=== PATIENT | female | born 1970 | race Caucasian/White ===

== ENCOUNTER → 2023-11-10 11:58 | Outpatient (REF) | payer OTHER, SELFPAY | LOC: RAD 11:58 | PROVIDERS: ATTENDING PHYSICIAN Nurse Practitioner | DX: M79.671 Pain in right foot (principal) | CPT/HCPCS: 73630 ==

== ENCOUNTER → 2024-02-27 08:17 | Outpatient (REF) | payer OTHER, SELFPAY | LOC: WDC 08:17 | PROVIDERS: ATTENDING PHYSICIAN Family Medicine Geriatric Medicine; FAMILY PHYSICIAN Nurse Practitioner | DX: R92.8 Other abnormal and inconclusive findings on diagnostic imaging of breast (principal); Z12.31 Encounter for screening mammogram for malignant neoplasm of breast | CPT/HCPCS: 76642; 77063; 77067 ==

== ENCOUNTER 2024-02-27 08:53 | Emergency (ER) | payer OTHER, SELFPAY ==
[2024-02-27 08:54] VITALS: BP 130/92
--- NOTE | 2024-02-27 09:22 | ED.GENMED ---
History of Present Illness
General
Chief Complaint: Musculo-Skeletal Complaint
Source: patient
Time Seen by Provider: 02/27/24 08:57
History of Present Illness
History of Present Illness:
53-year-old female with past medical history of breast cancer, remission since 2020, presenting to the emergency department for evaluation of left lower back pain that started on Friday night described to be a constant aching sensation,
intermittently having sharp pain radiating down her left leg, pain worsens with any type of movement noting that when she attempts to get into a sitting or standing position she has significant pain but once she is sitting or laying feels more
comfortable. She states she cannot think of anything that may have exacerbated or caused her symptoms. She does note she did a little bit of gardening on either Friday or Friday but does not remember having any pain during this time. Denies any
fevers, bowel or urinary incontinence, saddle anesthesia, focal weakness or numbness, chronic corticosteroid use, traumatic injuries or any other concerns. Patient does note that she was at this facility already getting imaging that she gets
annually for her breast cancer and she has an appointment scheduled with her primary care provider for 11:15 AM this morning but thought the primary care would send her for imaging anyway so decided to come to the ER instead.
Past History
Past History
ED Past Medical History: Cancer and Other (Fibromyalgia, chronic sinus issues, interstitial cystitis)
ED Past Surgical History: Tonsilectomy and Other (Sinus surgery/abdominal mesh)
Social History
Tobacco: Former smoker
Alcohol: None
Drug: None
Personal:
Living: with family
Employment: Employed
Family History
Family History: Other (Noncontributory)
Review of Systems
Review of Systems
All Other Systems: ROS reviewed and negative except as documented in HPI and ROS
Phy Exam
Physical Exam
Physical Exam:
GENERAL: Alert , in no apparent distress at rest but appears uncomfortable with movement
EYE: clear conjunctiva b/l
NECK: Supple
ENT: o/p clr, mmm.
BACK: Limited range of motion especially with forward bend, left paralumbar and sacroiliac tenderness, no midline bony tenderness, no rashes
NEUROLOGICAL: Alert and oriented, no focal neuro deficits. Patellar deep tendon reflexes intact and equal bilaterally, sensation grossly intact and equal to light touch bilateral lower extremities, negative straight leg raise
SKIN: Warm and dry, skin intact.
MUSCULOSKELETAL: No edema, well perfused. EHL intact bilaterally
PSYCH: Normal and appropriate interaction.
Scores
Heart Failure Risk
Heart Failure Risk Score: Not Applicable
Heart Score for Chest Pain Patients
STEMI patient?: Not applicable
Withdrawal Assessment of Alcohol
Withdrawal Assessment Completed?: Not applicable
Course
Orders/Labs/Results
Orders:
Orders
02/27/24 09:18
CR Lumbar Spine Comp Min 4 Vw* Urgent
Comment:
Reason For Exam: low back pain, radicular symptoms LLE
Vital Signs
Initial and Last Documented VS:
Initial Vital Signs
Temp Pulse Resp BP Pulse Ox
97.9 F 73 16 130/92 98
02/27/24 08:54 02/27/24 08:54 02/27/24 08:54 02/27/24 08:54 02/27/24 08:54
Last Documented Vital Signs
Temp Pulse Resp BP Pulse Ox
97.9 F 73 16 130/92 98
02/27/24 08:54 02/27/24 08:54 02/27/24 08:54 02/27/24 08:54 02/27/24 08:54
MDM/Problems Addressed
Differential Diagnosis Includes:
Disc herniation, nerve impingement, spinal stenosis, lumbar strain, no concern for infectious or acute neurologic impairment
MDM/Problems Addressed:
53-year-old female presenting to the emergency department with 2 days of left-sided lower back pain, pain will intermittently radiate down left leg, much worse with movement and positioning. Clearly reproducible pain with palpation on exam to the
left paralumbar and sacroiliac region. Patient takes Mobic for chronic right foot pain that she is currently being worked up for with podiatry. No red flag symptoms in history outside of known breast cancer however I do not have suspicion for
metastases as patient currently in remission. Will check x-ray imaging. Discussed with patient she may need more advanced imaging especially if symptoms persist or continue to worsen. She already has follow-up scheduled with primary care provider
today. Anticipate discharge home and will prescribe Medrol Dosepak and topical agents. Patient already has muscle relaxants and anti-inflammatories at home.
*Radiology
Radiology exam reviewed: preliminary read by ED provider (mild degenerative changes)
*Pulse Oximetry
Patient hypoxic: no
*Critical Care Note
Total Time (30-74mins, 75-104mins- exclusive of procedures): Not Applicable
Data Reviewed
Review of Other/Old Records Reveals: Labs and Records
Source: patient
Patient Management
Escalation/DeEscalation of care consider admission/obs:
XR with mild degenerative changes but no other abnormalities. Stable for d/c home and outpatient f/u with PCP. Patient will also notify her ortho
ED Attending Note
-
Portions of this chart may have been created with voice recognition software.� Occasional wrong word or��sound alike� substitutions may have occurred due to the inherent limitations of voice recognition software.
Discharge Plan
Departure
Patient Disposition: Home (Routine Discharge)
Date of Disposition: 02/27/24
Time of Disposition: 10:15
Patient with high blood pressure during this ER visit?: No
Discharge Problem:
Low back pain
Instructions: Low Back Pain (DC)
Prescriptions:
New
methylprednisolone [Medrol (Tone)] 4 mg tablets,dose pack
4 mg PO DIRECTED Qty: 21 0RF
No Action
Maxalt
10 mg PO PRN PRN (Reason: migraines)
fluticasone propion-salmeterol [Wixela Inhub] 1 EACH blister with device
1 ea IH BID
benzonatate 100 MG capsule
200 mg PO TIDPRN PRN (Reason: cough)
buspirone [BuSpar] 15 mg Tablet
15 mg PO BID
armodafinil [Nuvigil] 250 mg Tablet
250 mg PO DAILY
iron
1 dose PO DAILY
omeprazole 40 mg Capsule,Delayed Release(Dr/Ec)
40 mg PO HS
albuterol sulfate 90 mcg/actuation Hfa Aerosol Inhaler
1 inh INHALATION PRN PRN (Reason: shortness of breath)
Vitamin D3
1 tab PO DAILY
cyanocobalamin (vitamin B-12)
1 tab PO DAILY
fluticasone propionate [Flonase] 50 mcg/actuation [place],Suspension
1 spray INTRANASAL PRN PRN (Reason: nasal congestion)
Referrals:
Lesvia High MD [Family Provider] -
Interventions
Interventions:
*Risk Screen - Suicide Last Done: 02/27/24 08:54
*General Assessment Last Done: 02/27/24 08:54
*Neglect/Abuse Screening Last Done: 02/27/24 08:54
ED- Fall Risk Assessment Last Done: 02/27/24 10:21
*ED COVID-19 Vaccine History Last Done: 02/27/24 10:21
*Nursing Disposition Last Done: 02/27/24 10:21
ED-Musculoskeletal Assessment Last Done: 02/27/24 09:48
Discharge Date and Time
Discharge Date/Time: 02/27/24 10:22
Print Language: AMHARIC
== END 2024-02-27 10:22 | disposition home or self-care (01) ==
LOC: EMR 08:53
PROVIDERS: EMERGENCY PHYSICIAN Emergency Medicine; FAMILY PHYSICIAN Internal Medicine
DX: M54.50 Low back pain, unspecified (principal); M79.605 Pain in left leg; M79.671 Pain in right foot; G89.29 Other chronic pain; M79.7 Fibromyalgia; Z87.891 Personal history of nicotine dependence; Z85.3 Personal history of malignant neoplasm of breast; Z88.1 Allergy status to other antibiotic agents
CPT/HCPCS: 99283; 72110

== ENCOUNTER → 2024-03-22 12:44 | Outpatient (REF) | payer OTHER, SELFPAY | LOC: RAD 12:44 | PROVIDERS: ATTENDING PHYSICIAN Physician Assistant; FAMILY PHYSICIAN Nurse Practitioner | DX: M54.50 Low back pain, unspecified (principal); M54.9 Dorsalgia, unspecified | CPT/HCPCS: 72202 ==

== ENCOUNTER 2024-04-05 06:21 | Day surgery (SDC) | payer BC, SELFPAY ==
[2024-03-29 10:08] VITALS: BMI 30.6
[2024-03-29 10:46] LABS: % Basophils 0.8 % (0-2); % Eosinophils 3.3 % (0-6); % Immature Granulocytes 0.2 % (0-0.5); % Monocytes 8.3 % (1.7-9.3); % Neutrophils 64.4 % (42.2-75.2); Absolute Eosinophils 0.2 10^3/uL (0-0.7); Absolute Lymphocytes 1.2 10^3/uL (1.2-3.4); Absolute Monocytes 0.4 10^3/uL (0.1-0.6); Absolute Neutrophils 3.3 10^3/uL (1.4-6.5); Hemoglobin 12.5 g/dL (12.0-16.0); Mean Corp Hgb Conc. 32.9 g/dL (33.0-37.0); Mean Corpuscular Hgb 29.2 pg (27.0-31.0); Mean Corpuscular Volume 88.8 fL (81.0-99.0); Nucleated Red Blood Cells % 0 %; Platelet Count 307 10^3/uL (130-400); Red Blood Cell Count 4.28 10^6/uL (4.20-5.40); Red Cell Dist. Width 13.5 % (11.5-14.5); White Blood Cell Count 5.1 10^3/uL (4.8-10.8)
[2024-03-29 11:15] LABS: Blood Urea Nitrogen 16 mg/dl (7-17); Calcium 9.8 mg/dl (8.4-10.2); Carbon Dioxide 27 mmol/L (22-30); Chloride 105 mmol/L (98-107); Estimated Creatinine Clearance 82 ml/min; Glucose 100 mg/dl (70-99); Potassium 4.4 mmol/L (3.5-5.1); Sodium 141 mmol/L (135-145); eGFR > 60.00
[2024-04-05 11:33] VITALS: BMI 30.6
[2024-04-05 11:34] VITALS: BP 118/76
[2024-04-05] MEDS: NORMOSOL-R/PLASMALYTE-A 1000 IV (11:54)
[2024-04-05] MEDS: TYLENOL 1000 MG PO (11:54)
[2024-04-05] MEDS: CELEBREX 200 MG PO (11:54)
[2024-04-05 15:25] VITALS: BP 118/76
--- NOTE | 2024-04-05 15:50 | SUR.PHASEI ---
Dr. Valentin notified about pt.'s eye will continue to monitor.
[2024-04-05 16:00] VITALS: BP 93/60
[2024-04-05 16:15] VITALS: BP 102/65
[2024-04-05] MEDS: ROXICODONE 5 MG PO (16:28)
[2024-04-05 16:40] VITALS: BP 107/63
== END 2024-04-05 16:54 | disposition home or self-care (01) ==
LOC: SDS 06:21
PROVIDERS: ATTENDING PHYSICIAN Student in an Organized Health Care Education/Training Program; FAMILY PHYSICIAN Nurse Practitioner
DX: M20.21 Hallux rigidus, right foot (principal)
CPT/HCPCS: 28750; 20900; 36415; 80048; 85025; 93005; C1713; C1776

== ENCOUNTER → 2024-09-06 14:47 | Outpatient (REF) | payer BC, SELFPAY | LOC: EMG 14:47 | PROVIDERS: ATTENDING PHYSICIAN Orthopaedic Surgery; FAMILY PHYSICIAN Internal Medicine | DX: G56.03 Carpal tunnel syndrome, bilateral upper limbs (principal); R20.0 Anesthesia of skin | CPT/HCPCS: 95886; 95911 ==

== ENCOUNTER → 2024-12-08 12:31 | Outpatient (REF) | payer BC, SELFPAY ==
[2024-12-08 13:34] LABS: % Basophils 0.6 % (0-2); % Eosinophils 0.8 % (0-6); % Immature Granulocytes 0.2 % (0-0.5); % Lymphocytes 26.5 % (20.5-51.1); % Monocytes 5.2 % (1.7-9.3); % Neutrophils 66.7 % (42.2-75.2); Absolute Lymphocytes 1.3 10^3/uL (1.2-3.4); Absolute Monocytes 0.3 10^3/uL (0.1-0.6); Absolute Neutrophils 3.2 10^3/uL (1.4-6.5); Hematocrit 43.8 % (37.0-47.0); Hemoglobin 14.4 g/dL (12.0-16.0); Mean Corp Hgb Conc. 32.9 g/dL (33.0-37.0); Mean Corpuscular Hgb 28.6 pg (27.0-31.0); Mean Corpuscular Volume 87.1 fL (81.0-99.0); Mean Platelet Volume 9.8 fL (7.4-10.4); Nucleated Red Blood Cells % 0 %; Platelet Count 331 10^3/uL (130-400); Red Blood Cell Count 5.03 10^6/uL (4.20-5.40); Red Cell Dist. Width 13.7 % (11.5-14.5); White Blood Cell Count 4.8 10^3/uL (4.8-10.8)
[2024-12-08 13:58] LABS: ALT (SGPT) 17 U/L (0-35); AST (SGOT) 20 U/L (14-36); Albumin 4.4 g/dl (3.5-5.0); Alkaline Phosphatase 90 U/L (38-126); Blood Urea Nitrogen 18 mg/dl (7-17); Calcium 10.1 mg/dl (8.4-10.2); Carbon Dioxide 26 mmol/L (22-30); Chloride 107 mmol/L (98-107); Glucose 97 mg/dl (70-99); Sodium 140 mmol/L (135-145); Total Bilirubin 0.4 mg/dl (0.2-1.3); Total Protein 7.5 g/dl (6.3-8.2); eGFR > 60.00
[2024-12-08 14:01] LABS: C-Reactive Protein < 5.00 mg/L (0.0-10.00)
[2024-12-08 14:17] LABS: Vitamin D, 25-OH*** 37.2 ng/mL (30-80)
[2024-12-08 14:27] LABS: Erythrocyte Sed Rate 8 mm/hour (0-20)
[2024-12-08 14:31] LABS: Urine Albumin 1+ (Neg - Trace); Urine Bilirubin Negative (Negative); Urine Character Clear (Clear); Urine Color Yellow; Urine Glucose Negative (Negative); Urine Ketone Negative (Negative); Urine Leukocyte 3+ (Negative); Urine Nitrite Negative (Negative); Urine Occult Blood 2+ (Negative); Urine Urobilinogen Negative (Neg - 1+)
[2024-12-08 14:39] LABS: Urine Bacteria Few (Negative)
[2024-12-08 14:59] LABS: Protein/creatinine Ratio 0.1; Urine Protein 7 mg/dl
[2024-12-09 02:07] LABS: Complement C3 156 mg/dl (88-165)
[2024-12-11 07:57] LABS: ANA, IgG Reflex to HEp-2 None Detected (None Detected)
[2024-12-11 09:38] LABS: Smith/RNP (ENA), IgG 2 Units (0-19)
== END ==
LOC: REG 12:31
PROVIDERS: ATTENDING PHYSICIAN Student in an Organized Health Care Education/Training Program; FAMILY PHYSICIAN Nurse Practitioner
DX: H04.123 Dry eye syndrome of bilateral lacrimal glands (principal); K13.0 Diseases of lips; M19.91 Primary osteoarthritis, unspecified site; M25.60 Stiffness of unspecified joint, not elsewhere classified; M79.641 Pain in right hand; M79.642 Pain in left hand; M79.7 Fibromyalgia; R21 Rash and other nonspecific skin eruption; R53.82 Chronic fatigue, unspecified; Z98.890 Other specified postprocedural states
CPT/HCPCS: 36415; 71046; 73120; 80053; 81003; 81015; 82164; 82306; 82570; 82784; 83516; 83521; 84155; 84156; 84165; 84550; 85025; 85652; 86038; 86140; 86160; 86225; 86235; 86334; 87086

== ENCOUNTER 2025-01-14 06:21 | Day surgery (SDC) | payer BC, SELFPAY | END 2025-01-14 12:00 | disposition home or self-care (01) | LOC: GI 06:21 | PROVIDERS: ATTENDING PHYSICIAN Internal Medicine Gastroenterology | DX: Z12.11 Encounter for screening for malignant neoplasm of colon (principal); K64.8 Other hemorrhoids; Q43.8 Other specified congenital malformations of intestine | CPT/HCPCS: G0121 ==

== ENCOUNTER → 2025-03-04 08:13 | Outpatient (REF) | payer BC, SELFPAY | LOC: HWRAD 08:13 | PROVIDERS: ATTENDING PHYSICIAN Student in an Organized Health Care Education/Training Program; FAMILY PHYSICIAN Nurse Practitioner | DX: M79.671 Pain in right foot (principal) | CPT/HCPCS: 73700 ==

== ENCOUNTER → 2025-03-09 13:01 | Outpatient (REF) | payer BC, SELFPAY | LOC: WDC 13:01 | PROVIDERS: ATTENDING PHYSICIAN Family Medicine Geriatric Medicine; FAMILY PHYSICIAN Nurse Practitioner | DX: E01.0 Iodine-deficiency related diffuse (endemic) goiter (principal); Z12.31 Encounter for screening mammogram for malignant neoplasm of breast; R92.8 Other abnormal and inconclusive findings on diagnostic imaging of breast | CPT/HCPCS: 76536; 77063; 77067 ==

== ENCOUNTER → 2025-04-04 11:38 | Outpatient (REF) | payer BC, SELFPAY ==
[2025-04-04 13:09] LABS: Hematocrit 44.3 % (37.0-47.0); Hemoglobin 14.3 g/dL (12.0-16.0); Mean Corp Hgb Conc. 32.3 g/dL (33.0-37.0); Mean Corpuscular Volume 87.7 fL (81.0-99.0); Nucleated Red Blood Cells % 0 %; Platelet Count 296 10^3/uL (130-400); Red Cell Dist. Width 14.2 % (11.5-14.5)
[2025-04-04 14:03] LABS: Blood Urea Nitrogen 22 mg/dl (7-17); Calcium 10.3 mg/dl (8.4-10.2); Carbon Dioxide 28 mmol/L (22-30); Chloride 107 mmol/L (98-107); Glucose 84 mg/dl (70-99); Potassium 4.9 mmol/L (3.5-5.1); Sodium 140 mmol/L (135-145); eGFR > 60.00
== END ==
LOC: REG 11:38
PROVIDERS: ATTENDING PHYSICIAN Student in an Organized Health Care Education/Training Program
DX: Z01.818 Encounter for other preprocedural examination (principal); M79.671 Pain in right foot
CPT/HCPCS: 36415; 80048; 85025; 93005

== ENCOUNTER → 2025-04-13 08:58 | Outpatient (REF) | payer BC, SELFPAY | LOC: WDC 08:58 | PROVIDERS: ATTENDING PHYSICIAN Family Medicine Geriatric Medicine; FAMILY PHYSICIAN Nurse Practitioner | DX: R92.333 Mammographic heterogeneous density, bilateral breasts (principal) | CPT/HCPCS: 76641 ==

== ENCOUNTER → 2025-04-15 11:49 | Outpatient (REF) | payer BC, SELFPAY | LOC: RAD 11:49 | PROVIDERS: ATTENDING PHYSICIAN Nurse Practitioner | DX: Z91.81 History of falling (principal); S39.92XD Unspecified injury of lower back, subsequent encounter | CPT/HCPCS: 72100; 72220 ==

== ENCOUNTER 2025-04-18 06:10 | Day surgery (SDC) | payer BC, SELFPAY ==
[2025-04-18] VITALS (12 sets, daily range): BP systolic 98–131; BP diastolic 45–85; BMI 28.4
[2025-04-18] MEDS: TYLENOL 1000 MG PO (09:45)
[2025-04-18] MEDS: CELEBREX 200 MG PO (09:45)
[2025-04-18] MEDS: ZOFRAN 4 MG IV (12:40)
[2025-04-18] MEDS: DILAUDID 0.5 MG IV ×2 (12:40→13:10)
== END 2025-04-18 15:16 | disposition home or self-care (01) ==
LOC: SDS 06:10
PROVIDERS: ATTENDING PHYSICIAN Student in an Organized Health Care Education/Training Program
DX: T84.84XA Pain due to internal orthopedic prosthetic devices, implants and grafts, initial encounter (principal); M96.0 Pseudarthrosis after fusion or arthrodesis; M20.5X1 Other deformities of toe(s) (acquired), right foot; M21.621 Bunionette of right foot; Y79.3 Surgical instruments, materials and orthopedic devices (including sutures) associated with adverse incidents; Y83.1 Surgical operation with implant of artificial internal device as the cause of abnormal reaction of the patient, or of later complication, without mention of misadventure at the time of the procedure; Y83.8 Other surgical procedures as the cause of abnormal reaction of the patient, or of later complication, without mention of misadventure at the time of the procedure
CPT/HCPCS: 28750; 20680; 28110; 97116; 97161

== ENCOUNTER → 2025-05-20 15:32 | Outpatient (REF) | payer BC, SELFPAY | LOC: RCS 15:32 | PROVIDERS: ATTENDING PHYSICIAN Internal Medicine Cardiovascular Disease; FAMILY PHYSICIAN Nurse Practitioner | DX: Z85.3 Personal history of malignant neoplasm of breast (principal); E78.2 Mixed hyperlipidemia | CPT/HCPCS: 93306 ==

== ENCOUNTER → 2025-05-24 08:20 | Outpatient (REF) | payer SELFPAY | LOC: RAD 08:20 | PROVIDERS: ATTENDING PHYSICIAN Nurse Practitioner Adult Health; FAMILY PHYSICIAN Nurse Practitioner; REFERRING PHYSICIAN Student in an Organized Health Care Education/Training Program | DX: M81.0 Age-related osteoporosis without current pathological fracture (principal) | CPT/HCPCS: 77080 ==